=== PATIENT | male | born 1995 | race Two or more races ===

== ENCOUNTER 2024-05-31 02:38 | Emergency (ER) | payer OTHER ==
[~2024-05-31] VITALS: Ht 185.4 cm; Wt 111.1 kg
[2024-05-31] MEDS ORDERED: ONDANSETRON 4 MG TAB.RAPDIS ONE (03:38)
[2024-05-31] MEDS ORDERED: FOLIC ACID 1 MG TABLET ONE (03:38)
[2024-05-31] MEDS ORDERED: THIAMINE HCL 100 MG TABLET ONE (03:39)
[2024-05-31] MEDS ORDERED: LORAZEPAM INJ 2 MG/ML VIAL ONE ×2 (03:41→05:09)
[2024-05-31] MEDS: IV NS 0.9% 1,000 ML BAG IV ONE ×2 (03:42→05:19)
[2024-05-31] MEDS: THIAMINE HCL 100 MG TABLET PO ONE (03:42)
[2024-05-31] MEDS: FOLIC ACID 1 MG TABLET PO ONE (03:42)
[2024-05-31] MEDS: ONDANSETRON 4 MG TAB.RAPDIS PO ONE (03:42)
[2024-05-31] MEDS: LORAZEPAM INJ 2 MG/ML VIAL IVP ONE (03:42)
[2024-05-31 04:30] LABS: BASOPHILS % (AUTO) 0.5 % (0.0-2.0); EOSINOPHILS # (AUTO) 0.2 K/uL (0.0-0.7); EOSINOPHILS % (AUTO) 2.6 % (0.0-6.0); HEMATOCRIT 41 % (39-51); HEMOGLOBIN 13.8 g/dL (13.5-17.5); LYMPHOCYTES # (AUTO) 2.5 K/uL (0.8-4.8); LYMPHOCYTES % (AUTO) 26.2 % (20.0-44.0); MEAN CORPUSCULAR HEMOGLOBIN 29 PG (26.0-33.0); MEAN CORPUSCULAR HGB CONC 34 g/dl (31.0-36.0); MEAN CORPUSCULAR VOLUME 85 fL (80-96); MONOCYTES # (AUTO) 0.6 K/uL (0.1-1.30); MONOCYTES % (AUTO) 6.8 % (2.0-12.0); NEUTROPHILS % (AUTO) 63.9 % (43.0-81.0); PLATELET COUNT (AUTO) 315 K/uL (150-450); RED CELL DISTRIBUTION WIDTH 13.9 % (11.5-15.0); WHITE BLOOD COUNT (AUTO) 9.4 K/uL (4.3-11.0)
[2024-05-31 04:40] LABS: CARBON DIOXIDE 32 mmol/L (21-32); CHLORIDE 105 mmol/L (98-107); CREATININE 1.1 mg/dL (0.6-1.3); GLUCOSE 100 mg/dL (74-106); POTASSIUM 3.8 mmol/L (3.5-5.1); SODIUM SERUM 141 mmol/L (136-145); UREA NITROGEN, BLOOD 13 mg/dL (7-18)
[2024-05-31 04:45] LABS: ALANINE AMINOTRANSFERASE 25 U/L (12-78); ALBUMIN 3.5 g/dL (3.4-5.0); ALKALINE PHOSPHATASE 54 U/L (46-116); ASPARTATE AMINOTRANSFERASE 19 U/L (15-37); BILIRUBIN,DIRECT 0.2 mg/dL (0.0-0.2); BILIRUBIN,TOTAL 0.5 mg/dL (0.2-1.0); TOTAL PROTEIN, SERUM 6.7 g/dL (6.4-8.2)
[2024-05-31 04:48] LABS: SALICYLATE 2.1 mg/dL (2.8-20.0)
[2024-05-31 04:49] LABS: ACETAMINOPHEN <10 ug/ml (10-30); ALCOHOL, BLOOD < 3 mg/dL (0-10)
[2024-05-31] MEDS ORDERED: ONDANSETRON HCL/PF 4 MG/2 ML VIAL ONE ×2 (05:14→07:17)
[2024-05-31] MEDS: LORAZEPAM INJ 2 MG/ML VIAL IV ONE (05:18)
[2024-05-31] MEDS: ONDANSETRON HCL/PF - ER 4 MG/2 ML VIAL IV ONE (05:19)
[2024-05-31 06:13] LABS: APPEARANCE,URINE CLEAR (CLEAR); BILIRUBIN,URINE NEGATIVE (NEGATIVE); BLOOD, URINE NEGATIVE Ery/uL (NEGATIVE); COLOR,URINE YELLOW (YELLOW); KETONES,URINE NEGATIVE (NEGATIVE); LEUKOCYTE ESTERASE ,URINE NEGATIVE (NEGATIVE); NITRITE, URINE NEGATIVE (NEGATIVE); PROTEIN,URINE NEGATIVE (NEGATIVE); UGLUCOSE NEGATIVE (NEGATIVE); UROBILINOGEN,URINE 0.2 EU/dL (0.2)
[2024-05-31 06:20] LABS: AMPHETAMINE, URINE NEGATIVE (NEGATIVE); BARBITURATE, URINE NEGATIVE (NEGATIVE); COCCAINE, URINE NEGATIVE (NEGATIVE); OPIATE, URINE NEGATIVE (NEGATIVE); PHENCYCLIDINE SCREEN,URINE NEGATIVE (NEGATIVE)
[2024-05-31 06:22] LABS: BENZODIAZEPINE, URINE POSITIVE (NEGATIVE); CANNABINOID, URINE POSITIVE (NEGATIVE)
[2024-05-31] MEDS ORDERED: CHLO25CA22 PO (06:26)
[2024-05-31] MEDS: ONDANSETRON HCL/PF 4 MG/2 ML VIAL IV ONE (07:26)
[2024-05-31] MEDS ORDERED: LORAZEPAM 1 MG TABLET ONE (07:35)
[2024-05-31] MEDS: LORAZEPAM 1 MG TABLET PO ONE (07:43)
[2024-05-31 07:46] VITALS: BP 126/80; TEMP 98.8; O2SAT 97
== END 2024-05-31 07:46 | disposition home or self-care (01) ==
LOC: ER 02:40
DX: F10.139 Alcohol abuse with withdrawal, unspecified (principal); F19.10 Other psychoactive substance abuse, uncomplicated; Y90.0 Blood alcohol level of less than 20 mg/100 ml
CPT/HCPCS: 99285; 96374; 96361; 96375; 93005; 96376; 85025; 80048; 80076; 81003; 36415; 80143; 80320; 80307; J2060 ×2; J2405 ×3; J7030; Q0162; G0480